=== PATIENT | male | born 1945 | race Caucasian/White ===

== ENCOUNTER 2016-12-16 04:26 | Inpatient (IN) | payer OTHER, BC ==
[~2016-12-16] VITALS: Ht 175.3 cm; Wt 83.8 kg
[~2016-12-16 04:26] MED LIST: ACET-1256 PO; ALBUAER2 INH; AMLO-110 PO; AMLO2.5T PO; ASPEC81 PO; FENO145T26 PO; FERRTAB18 PO; METO25TA3 PO; MULT-506 PO; NTRGSL/4 UT; OXYC-57 PO; ROSU40TA PO; TIOTCAP INH; [UNRECOGNIZED DRUG - CODE] PO
[2016-12-16 04:32] VITALS: Ht 175.3 cm; Wt 83.8 kg
[2016-12-16] MEDS ORDERED: ASPIRIN 81 MG CHEW PO STA (04:48)
[2016-12-16 05:00] LABS: HEMATOCRIT 40.9 % (42-52); MEAN CELL VOLUME 86.3 fL (80-100); MEAN CORPUSCULAR HEMOGLOBIN 29.7 pg (25-34); MEAN CORPUSCULAR HGB CONC 34.5 g/dl (32-36); MEAN PLATELET VOLUME 9.7 fL (7.4-10.4); PLATELET COUNT 320 K/uL (130-400); RED BLOOD COUNT 4.74 M/uL (4.7-6.1); WHITE BLOOD COUNT 13.49 K/uL (4.8-10.8)
[2016-12-16 05:09] LABS: PROTHROMBIN TIME (PATIENT) 10.6 SECONDS (9.0-12.0)
[2016-12-16 05:12] LABS: BUN/CREATININE RATIO 19.7 (10-20); CALCIUM 8.8 mg/dl (8.5-10.1); CREATININE 1.9 mg/dl (0.60-1.40); POTASSIUM 4.4 mmol/L (3.5-5.1)
[2016-12-16 05:26] LABS: BASO % 0.2 %; BASO ABS # 0.03 K/uL (0-0.2); COMPLETE YES; EOS % 0.4 %; IG% 0.7 %; LYMPH % 12.9 %; LYMPH ABS # 1.74 K/uL (1.2-3.4); MONO % 4.2 %; NEUT % 81.6 %
[2016-12-16 05:29] LABS: THYROID STIMULATING HORMONE 1.39 uIu/ml (0.300-4.500)
[2016-12-16] MEDS ORDERED: MoRPHine SULFATE 4 MG/ML 1 ML CARP\\VIAL IV STA (05:34)
[2016-12-16] MEDS: NITROGLYCERIN 0.4 MG SL PER TAB CHARGE SL PRN ×2 (05:41→05:46)
[2016-12-16] MEDS ORDERED: NITROGLYCERIN OINT 2% 1GM PACKET EXT ONE (05:45)
[2016-12-16] MEDS ORDERED: HEPARIN 25000 UNIT/500 ML D5W ONE (05:50)
[2016-12-16] MEDS ORDERED: HEPARIN SOD 5000 UNIT/0.5 ML CARP ONE (05:50)
[2016-12-16] MEDS ORDERED: SODIUM CHLORIDE 0.9% 500ML 500 ML IV STA ×2 (06:01→06:02)
[2016-12-16] MEDS ORDERED: SPRIN/30 INH (06:07)
[2016-12-16] MEDS ORDERED: VNTHFA/IN INH (06:08)
[2016-12-16] MEDS ORDERED: ASPI81TA28 PO (06:08)
[2016-12-16] MEDS ORDERED: WHEAPOW13 PO (06:09)
[2016-12-16] MEDS ORDERED: NITROGLYCERIN 0.4 MG SL PER TAB CHARGE SL STA (06:29)
[2016-12-16] MEDS ORDERED: PANTOprazole SOD 40 MG TAB PO ONE (06:29)
[2016-12-16 06:42] LABS: MAGNESIUM 2.1 mg/dl (1.8-2.4)
[2016-12-16] MEDS ORDERED: HYDROmorphone INJ 0.5 MG/0.5 ML SYR IV PRN (06:45)
[2016-12-16] MEDS ORDERED: DEXTROSE 50% 50 ML SYR IV PRN (06:45)
[2016-12-16] MEDS ORDERED: NITROGLYCERIN 0.4 MG SL PER TAB CHARGE SL PRN (06:45)
[2016-12-16] MEDS ORDERED: ONDANSETRON INJ 2 MG/ML 2 ML VIAL IV PRN (06:45)
[2016-12-16] MEDS ORDERED: GLUCAGON FOR INJ 1 MG VIAL SQ PRN (06:45)
[2016-12-16] MEDS ORDERED: GLUCOSE 40% GEL 15 GM TUBE PO PRN (06:45)
[2016-12-16] MEDS ORDERED: ACETAMINOPHEN 325 MG TAB PO PRN (06:45)
[2016-12-16] MEDS ORDERED: LORAZEPAM 2 MG/ML 1 ML VIAL IV PRN (06:45)
[2016-12-16] MEDS ORDERED: PROMETHAZINE HCL INJ 12.5 MG in SODIUM CHLORIDE 0.9% 50ML 50 ML IV PRN (06:45)
[2016-12-16] MEDS ORDERED: OXYCODONE/ACETAMINOPHEN 5-325 TAB PO PRN (06:45)
[2016-12-16] MEDS ORDERED: GLUCOSE 10 TABS/TUBE PO PRN (06:45)
[2016-12-16] MEDS ORDERED: SODIUM CHLORIDE 0.9% 1000ML 1,000 ML IV SCH (06:45)
--- NOTE | 2016-12-16 06:51 | EMERGENCY ROOM VISIT NOTE ---
History Report prepared by Xiomara: Filiberto Patrick Under the Supervision of: Dr. Norris Gabriel D.O. First contact with patient: 04:48 Chief Complaint: ABDOMINAL PAIN Stated Complaint: PAIN IN STOMACH, SHOULDER PAIN History of Present Illness The patient is a 71 year old male who presents to the Emergency Room with complaints of persistent epigastric pain since 0000. The patient describes the pain as a pressure sensation. He also complains of pain in the left shoulder. He vomited once after the onset of pain. The patient denies shortness of breath. The patient had a dose of Nitroglycerin, which did not relieve his pain. He did not have any Aspirin. The patient follows up with Dr. Vazquez, Chisel Trimmer. The patient also notes that his ostomy bag filled and ruptured prior to the onset of his pain. Source of History: patient Onset: 0000 Position: abdomen (epigastric) Quality: pressure Timing: other (persistent) Associated Symptoms: + vomiting, No SOB Review of Systems See HPI for pertinent positives & negatives. A total of 10 systems reviewed and were otherwise negative. Past Medical & Surgical Medical Problems: (1) AAA (abdominal aortic aneurysm) (2) ACS (acute coronary syndrome) (3) Bronchitis (4) CAD (coronary artery disease) (5) CKD (chronic kidney disease) stage 3, GFR 30-59 ml/min (6) COPD, mild (7) Diverticulosis (8) Dyslipidemia (9) HTN (hypertension) (10) Lumbar adjacent segment disease with spondylolisthesis (11) Tobacco abuse Surgical Problems: (1) Abdominal aortic aneurysm (2) H/O exploratory laparotomy (3) H/O laminectomy (4) History of colon resection (5) S/P AAA repair Family History Heart disease Social History Smoking Status: Current Every Day Smoker Drug Use: none Marital Status: Housing Status: lives with significant other Occupation Status: retired Current/Historical Medications Scheduled Acetaminophen (Tylenol), 1 TAB PO Q8 Amlodipine (Norvasc), 5 MG PO HS Amlodipine (Norvasc), 2.5 MG PO HS Aspirin (Aspirin Ec), 81 MG PO DAILY Fenofibrate (Tricor ), 145 MG PO QAM Iron-Vitamin C (Vitron-C), 1 TAB PO BID Metoprolol Succ (Toprol Xl) (Toprol-Xl), MG PO BID Rosuvastatin Calcium (Crestor), 40 MG PO QAM Tiotropium [place] (Spiriva Handihaler), 1 CAP INH DAILY Wheat Dextrin (Benefiber), 1 TBS PO DAILY Scheduled PRN Albuterol (Ventolin), 2 PUFFS INH QID PRN for SOB/Wheezing Albuterol Hfa (Ventolin Hfa), 2 PUFFS INH Q6H PRN for SOB/Wheezing Nitroglycerin (Nitrostat), 0.4 MG UT UD PRN for Chest Pain Oxycodone/Acetaminophen 5MG/325MG (Percocet 5MG/325MG), 1 TABLET PO Q8H PRN for RN Allergies Coded Allergies: No Known Drug Allergy (Verified Allergy, Unknown, ., 12/16/16) Physical Exam Vital Signs Date Time Temp Pulse Resp B/P Pulse Ox O2 Delivery O2 Flow Rate FiO2 12/16/16 05:47 67 18 90/51 92 Room Air 12/16/16 05:42 73 18 127/72 94 Room Air 12/16/16 05:10 74 12/16/16 04:57 92 20 132/78 97 Room Air 12/16/16 04:51 97 Room Air 12/16/16 04:32 36.3 82 20 124/70 96 Room Air Physical Exam CONSTITUTIONAL/VITAL SIGNS: Reviewed / noted above. GENERAL: Non-toxic in appearance. INTEGUMENTARY: Warm, dry, and [place]. HEAD: Normocephalic. EYES: without scleral icterus or trauma. ENT/OROPHARYNX: clear and moist. LYMPHADENOPATHY/NECK: Is supple without lymphadenopathy or meningismus. RESPIRATORY: Lungs clear and equal. CARDIOVASCULAR: Regular rate and rhythm. GI/ABDOMEN: Soft and nontender. No organomegaly or pulsatile mass. No rebound or guarding. Normal bowel sounds. EXTREMITIES: Warm and well perfused. BACK: No CVA tenderness. NEUROLOGICAL: Intact without focal deficits. PSYCHIATRIC: normal affect. MUSCULOSKELETAL: Normally developed with good muscle tone. Medical Decision & Procedures ER Provider Diagnostic Interpretation: X ray results and stated below per my interpretation. CHEST ONE VIEW PORTABLE: No acute disease, no pneumothorax, no pneumonia. Laboratory Results 12/16/16 04:44 Red Blood Count 4.74, Mean Corpuscular Volume 86.3, Mean Corpuscular Hemoglobin 29.7, Mean Corpuscular Hemoglobin Concent 34.5, Mean Platelet Volume 9.7, Neutrophils (%) (Auto) 81.6, Lymphocytes (%) (Auto) 12.9, Monocytes (%) (Auto) 4.2, Eosinophils (%) (Auto) 0.4, Basophils (%) (Auto) 0.2, Neutrophils # (Auto) 11.01, Lymphocytes # (Auto) 1.74, Monocytes # (Auto) 0.56, Eosinophils # (Auto) 0.06, Basophils # (Auto) 0.03 12/16/16 04:44 Test 12/16/16 04:44 12/16/16 04:47 White Blood Count 13.49 K/uL (4.8-10.8) Red Blood Count 4.74 M/uL (4.7-6.1) Hemoglobin 14.1 g/dL (14.0-18.0) Hematocrit 40.9 % (42-52) Mean Corpuscular Volume 86.3 fL (80-100) Mean Corpuscular Hemoglobin 29.7 pg (25-34) Mean Corpuscular Hemoglobin Concent 34.5 g/dl (32-36) Platelet Count 320 K/uL (130-400) Mean Platelet Volume 9.7 fL (7.4-10.4) Neutrophils (%) (Auto) 81.6 % Lymphocytes (%) (Auto) 12.9 % Monocytes (%) (Auto) 4.2 % Eosinophils (%) (Auto) 0.4 % Basophils (%) (Auto) 0.2 % Neutrophils # (Auto) 11.01 K/uL (1.4-6.5) Lymphocytes # (Auto) 1.74 K/uL (1.2-3.4) Monocytes # (Auto) 0.56 K/uL (0.11-0.59) Eosinophils # (Auto) 0.06 K/uL (0-0.5) Basophils # (Auto) 0.03 K/uL (0-0.2) RDW Standard Deviation 44.0 fL (36.4-46.3) RDW Coefficient of Variation 13.9 % (11.5-14.5) Immature Granulocyte % (Auto) 0.7 % Immature Granulocyte # (Auto) 0.09 K/uL (0.00-0.02) Prothrombin Time 10.6 SECONDS (9.0-12.0) Prothromb Time International Ratio 1.0 (0.9-1.1) Activated Partial Thromboplast Time 25.5 SECONDS (21.0-31.0) Partial Thromboplastin Ratio 1.0 Anion Gap 9.0 mmol/L (3-11) Est Creatinine Clear Calc Drug Dose 35.7 ml/min Estimated GFR () 40.2 Estimated GFR (Non- 34.7 BUN/Creatinine Ratio 19.7 (10-20) Calcium Level 8.8 mg/dl (8.5-10.1) Magnesium Level 2.1 mg/dl (1.8-2.4) Total Bilirubin 0.3 mg/dl (0.2-1) Direct Bilirubin 0.1 mg/dl (0-0.2) Aspartate Amino Transf (AST/SGOT) 12 U/L (15-37) Alanine Aminotransferase (ALT/SGPT) 23 U/L (12-78) Alkaline Phosphatase 54 U/L (45-117) Total Creatine Kinase 150 U/L (39-308) Creatine Kinase MB 4.5 ng/ml (0.5-3.6) Creatine Kinase MB Ratio 3.0 (0-3.0) Troponin I 0.434 ng/ml (0-0.045) Total Protein 8.3 gm/dl (6.4-8.2) Albumin 4.1 gm/dl (3.4-5.0) Lipase 189 U/L (73-393) Thyroid Stimulating Hormone (TSH) 1.390 uIu/ml (0.300-4.500) Bedside Troponin I 0.280 ng/ml (0-0.045) Laboratory results as stated above per my review. Medications Administered Medications (Trade) Dose Ordered Sig/Lonnie Route Start Time Stop Time Status Last Admin Dose Admin Aspirin (Aspirin Chew) 324 mg NOW STAT PO 12/16/16 04:48 12/16/16 04:50 DC 12/16/16 04:56 324 MG Nitroglycerin (Nitrostat Tab) 0.4 mg Q5M PRN SL 12/16/16 05:15 12/16/16 06:35 DC 12/16/16 05:46 0.4 MG Heparin Sodium/ Dextrose 1 ea NOW STAT N/A 12/16/16 05:36 12/16/16 05:37 DC 12/16/16 05:36 1 EA Heparin Sodium/ Dextrose (Heparin 25,000 Unit/500ml D5W) 25,000 unit STK-MED ONCE .ROUTE 12/16/16 05:50 12/16/16 05:52 DC 12/16/16 06:04 25,000 UNIT Heparin Sodium (Porcine) (Heparin Sq 5000 Unit/0.5ml) 10,000 unit STK-MED ONCE .ROUTE 12/16/16 05:50 12/16/16 05:52 DC 12/16/16 06:01 6,000 UNIT ECG Indication: abdominal pain Rate (beats per minute): 82 Rhythm: normal sinus Findings: ST depression (inferiolaterally), no ectopy Comparison ECG Date: 09/27/15 Change: ST depressions are new compared to EKG dated 09/27/15. ED Course 0445: Previous medical records were reviewed. The patient was evaluated in room B6. A complete history and physical examination was performed. 0448: Aspirin 324 mg PO. 0515: Nitrostat 0.4 mg SL. 0534: Morphine Sulfate 4 mg IV. 0536: Heparin Sodium / Dextrose 1 ea. 0540: Discussed the case with Dr. Dias, Chisel Trimmer. 0544: Spoke with Dr. Clark, [facility] Hospitalist. The patient will be evaluated. 0545: Nitroglycerin 2% 1 inch EXT. Medical Decision The differential that was considered includes acute myocardial infarction, acute coronary syndrome, myocarditis, pericarditis, pericardial effusions / tamponade, esophageal perforation, thoracic aortic dissection, pulmonary embolism, pneumonia, pneumothorax, pancreatitis, shingles, acute cholecystitis, perforated abdominal viscus. This is a 71-year-old male who presents to the ED with a chief complaint of chest pain. Patient describes onset of pain just after midnight which she describes as pressure. The patient denies any shortness of breath. He states that he also has some discomfort in his left shoulder. He has stable vital signs. His physical exam was unremarkable. A chest x-ray did not show acute disease. EKG shows ischemic changes with ST depressions/inversions in the inferolateral leads. BUN and creatinine are elevated. Troponin is elevated. TSH was normal. The patient had some improvement of his EKG during his ED stay. He was treated with aspirin. He was also given a couple nitroglycerin tablets that causes some hypotension. This was treated with IV fluids. The patient was started on IV heparin. He will be evaluated by the hospitalist. I did speak with Dr. Dias as well that the patient. Consults Time Called: 05 Consulting Physician: Dr. Dias, Chisel Trimmer. Returned Call: 05 0540: Discussed the case with Dr. Dias, Chisel Trimmer. Additional Consults: Time Called: 0540 Consulted Physician: Nadira Knox Hospitalist Returned Call: 05 Additional Comments: 0544: Spoke with Nadira Knox [facility]. The patient will be evaluated. Impression Primary Impression: NSTEMI (non-ST elevated myocardial infarction) Scribe Attestation The scribe's documentation has been prepared under my direction and personally reviewed by me in its entirety. I confirm that the note above accurately reflects all work, treatment, procedures, and medical decision making performed by me. Departure Information Dispostion Being Evaluated By Hospitalist Referrals Amanda Richter M.D. (PCP) Patient Instructions My [facility]
[2016-12-16] MEDS ORDERED: HEPARIN IV LOW DOSE NO BOLUS SCH (07:15)
[2016-12-16 07:24] LABS: ESTIMATED AVERAGE GLUCOSE 123 mg/dl; HA1C FLAG Normal (Normal)
[2016-12-16] MEDS ORDERED: MoRPHine SULFATE 10 MG/ML CARP/VIAL ONE (07:54)
[2016-12-16] MEDS ORDERED: MoRPHine SULFATE 10 MG/ML CARP/VIAL IV STA (07:55)
[2016-12-16] MEDS ORDERED: ONDANSETRON INJ 2 MG/ML 2 ML VIAL IV STA (07:55)
--- NOTE | 2016-12-16 08:05 | DIAGNOSTIC IMAGING REPORT ---
SINGLE VIEW CHEST CLINICAL HISTORY: Fever. Sepsis. FINDINGS: An AP, portable, upright chest radiograph is compared to study dated 04/07/2016 and correlated with chest CT dated 07/02/2009. The examination is degraded by portable technique and patient rotation. The heart is mildly enlarged and there is atherosclerotic calcification of the thoracic aorta. The pulmonary vasculature is noncongested. Enlargement of the central pulmonary arteries suggests pulmonary artery hypertension. Emphysema and chronic interstitial thickening are similar to previous. There is mild bibasilar atelectasis. No airspace consolidation or large pleural effusion is identified. No pneumothorax is seen. The skeletal structures are osteopenic. The bony thorax is grossly intact. Advanced atherosclerotic calcification is noted in the carotid bulbs. IMPRESSION: Cardiomegaly and emphysema with no acute cardiopulmonary abnormality. Electronically signed by: Kenyon Esposito M.D. 12/16/2016 8:04 AM Dictated Date/Time: 12/16/2016 8:02 AM
[2016-12-16] MEDS ORDERED: HEPARIN SOD (PORCINE) 1000 UNIT/ML 10 ML VIAL ONE (08:09)
[2016-12-16] MEDS ORDERED: FENTANYL CITRATE INJ 50 MCG/1 ML 2 ML VIAL ONE (08:09)
[2016-12-16] MEDS ORDERED: NiCARDipine HCL INJ 2.5 MG/ML 10 ML AMP ONE (08:09)
[2016-12-16] MEDS ORDERED: NITROGLYCERIN/D5W 100MCG/ML 20ML SYR ONE (08:10)
[2016-12-16] MEDS ORDERED: MIDAZOLAM HCL 1 MG/ML 2ML VIAL ONE (08:10)
[2016-12-16 08:16] VITALS: TEMP 36.3; O2SAT 95
--- NOTE | 2016-12-16 08:29 | DIAGNOSTIC IMAGING REPORT ---
CT SCAN OF THE ABDOMEN AND PELVIS WITH IV CONTRAST CLINICAL HISTORY: Atypical chest pain. COMPARISON STUDY: Abdominal CT dated 09/27/2015. TECHNIQUE: Following the IV administration of 119 cc of Optiray 320, CT scan of the abdomen and pelvis is performed from the lung bases to the proximal femora. Images are reviewed in the axial, sagittal, and coronal planes. IV contrast was administered without complication. Automated dose control exposure was utilized. CT DOSE: 1053.42 mGy.cm FINDINGS: Lung bases: The heart is normal in size and without pericardial effusion. There are coronary artery calcifications. Advanced emphysema is noted at the lung bases. There is dependent atelectasis. No airspace consolidation is seen typical for pneumonia and there is no pleural effusion. Liver: The contrast-enhanced liver is normal in size, contour, and attenuation. There is no intrahepatic biliary ductal dilatation. The hepatic veins and portal veins are patent. Gallbladder: There is a large calcified gallstone. There is no CT evidence of acute cholecystitis. Spleen: Normal in size and attenuation. Pancreas: Atrophic. Adrenal glands: Unremarkable. Kidneys: The contrast enhanced kidneys are atrophic and without hydronephrosis. The kidneys enhance symmetrically. There are at least 2 nonobstructing left renal calculi measuring up to 6 mm. Abdominal vasculature: There is advanced atherosclerotic plaque identified involving the abdominal aorta. There are changes from aortobiiliac bypass. The grafts appear patent. There is complete occlusion of the distal [place] abdominal aorta and common iliac arteries. 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 There is trace flow seen within the [place] external iliac arteries, likely retrograde. Stomach and bowel: A tiny hiatal hernia is identified. The stomach is mildly distended and fluid-filled. The duodenum is normal in configuration. No bowel obstruction is seen. There are postoperative changes from subtotal colectomy with right lower quadrant ileostomy. A small parastomal hernia is identified. A rectal stump is noted in the pelvis. There is laxity of the ventral abdominal wall with protuberant bowel loops. Peritoneum: There is no intraperitoneal free air or abdominal ascites. Foci of fat necrosis are present in the left lower quadrant. Lymphadenopathy: None. Pelvic viscera: The prostate gland is mildly enlarged and heterogeneous. The bladder wall appears thickened and trabeculated suggesting the sequelae of chronic outlet obstruction. There is a small fat-containing right inguinal hernia. Skeletal structures: The skeletal structures are osteopenic. Result sacral spondylosis with postoperative change L4-L5 spinal fusion. No lytic or blastic lesions are seen. Advanced arthritic change is noted in the hips. IMPRESSION: 1. There are no acute infectious or inflammatory findings in the abdomen or pelvis. 2. There are postoperative changes from subtotal colectomy with right lower quadrant ileostomy. No bowel obstruction is seen. A small parastomal hernia is identified. 3. Advanced emphysema. 4. There is advanced atherosclerotic disease seen throughout the abdominal aorta with aortobiiliac bypass grafts. The grafts are patent. 5. Nonobstructing left renal calculi. 6. Cholelithiasis. 7. The stomach is mildly distended. This is of indeterminant significance. 8. Additional changes as above. Electronically signed by: Kenyon Esposito M.D. 12/16/2016 8:27 AM Dictated Date/Time: 12/16/2016 8:18 AM
--- NOTE | 2016-12-16 08:29 | EMERGENCY ROOM VISIT NOTE ---
ED Visit Note First contact with patient: 08:26 Received patient in signout from Dr. Gabriel. history and physical verified by me. Culture patient's room because of severe chest pain. The patient appears to be having dynamic EKG changes however no outright criteria for STEMI. He was given 10 of morphine in the emergency department for his pain along with 4 Zofran. He immediate was sent over for a CAT scan of the chest. I did discuss the case with the [facility] hospitalist as well as [facility] cardiology. The decision was made to take the patient to the [facility]. Patient was in agreement with the treatment plan. Problem List Medical Problems: (1) AAA (abdominal aortic aneurysm) Permanent Comment: s/p repair Status: Chronic (2) CAD (coronary artery disease) Permanent Comment: NSTEMI 09/2015 Status: Chronic (3) CKD (chronic kidney disease) stage 3, GFR 30-59 ml/min Status: Chronic (4) COPD, mild Status: Chronic (5) Diverticulosis Status: Chronic (6) Dyslipidemia Status: Chronic (7) HTN (hypertension) Status: Chronic (8) Tobacco abuse Status: Chronic Surgical Problems: (1) H/O exploratory laparotomy Permanent Comment: 09/2015 Dr. Max Rogers Status: Resolved (2) H/O laminectomy Status: Resolved (3) History of colon resection Permanent Comment: secondary to ischemic bowel 09/2015 Status: Resolved (4) S/P AAA repair Permanent Comment: Dr. Willams 06/2009 Status: Resolved Current/Historical Medications Scheduled Acetaminophen (Tylenol), 1 TAB PO Q8 Amlodipine (Norvasc), 5 MG PO HS Amlodipine (Norvasc), 2.5 MG PO HS Aspirin (Aspirin Ec), 81 MG PO DAILY Fenofibrate (Tricor ), 145 MG PO QAM Iron-Vitamin C (Vitron-C), 1 TAB PO BID Metoprolol Succ (Toprol Xl) (Toprol-Xl), MG PO BID Rosuvastatin Calcium (Crestor), 40 MG PO QAM Tiotropium [place] (Spiriva Handihaler), 1 CAP INH DAILY Wheat Dextrin (Benefiber), 1 TBS PO DAILY Scheduled PRN Albuterol (Ventolin), 2 PUFFS INH QID PRN for SOB/Wheezing Albuterol Hfa (Ventolin Hfa), 2 PUFFS INH Q6H PRN for SOB/Wheezing Nitroglycerin (Nitrostat), 0.4 MG UT UD PRN for Chest Pain Oxycodone/Acetaminophen 5MG/325MG (Percocet 5MG/325MG), 1 TABLET PO Q8H PRN for RN Allergies Coded Allergies: No Known Drug Allergy (Verified Allergy, Unknown, ., 12/16/16) Vital Signs Date Time Temp Pulse Resp B/P Pulse Ox O2 Delivery O2 Flow Rate FiO2 12/16/16 05:58 112/58 12/16/16 05:57 97/61 12/16/16 05:56 68 19 95 12/16/16 05:48 85/46 12/16/16 05:47 67 18 90/51 92 Room Air 12/16/16 05:42 73 18 127/72 94 Room Air 12/16/16 05:10 74 12/16/16 04:57 92 20 132/78 97 Room Air 12/16/16 04:51 97 Room Air 12/16/16 04:32 36.3 82 20 124/70 96 Room Air Laboratory Results 12/16/16 04:44 Red Blood Count 4.74, Mean Corpuscular Volume 86.3, Mean Corpuscular Hemoglobin 29.7, Mean Corpuscular Hemoglobin Concent 34.5, Mean Platelet Volume 9.7, Neutrophils (%) (Auto) 81.6, Lymphocytes (%) (Auto) 12.9, Monocytes (%) (Auto) 4.2, Eosinophils (%) (Auto) 0.4, Basophils (%) (Auto) 0.2, Neutrophils # (Auto) 11.01, Lymphocytes # (Auto) 1.74, Monocytes # (Auto) 0.56, Eosinophils # (Auto) 0.06, Basophils # (Auto) 0.03 12/16/16 04:44 Test 12/16/16 04:44 12/16/16 04:47 White Blood Count 13.49 K/uL (4.8-10.8) Red Blood Count 4.74 M/uL (4.7-6.1) Hemoglobin 14.1 g/dL (14.0-18.0) Hematocrit 40.9 % (42-52) Mean Corpuscular Volume 86.3 fL (80-100) Mean Corpuscular Hemoglobin 29.7 pg (25-34) Mean Corpuscular Hemoglobin Concent 34.5 g/dl (32-36) Platelet Count 320 K/uL (130-400) Mean Platelet Volume 9.7 fL (7.4-10.4) Neutrophils (%) (Auto) 81.6 % Lymphocytes (%) (Auto) 12.9 % Monocytes (%) (Auto) 4.2 % Eosinophils (%) (Auto) 0.4 % Basophils (%) (Auto) 0.2 % Neutrophils # (Auto) 11.01 K/uL (1.4-6.5) Lymphocytes # (Auto) 1.74 K/uL (1.2-3.4) Monocytes # (Auto) 0.56 K/uL (0.11-0.59) Eosinophils # (Auto) 0.06 K/uL (0-0.5) Basophils # (Auto) 0.03 K/uL (0-0.2) RDW Standard Deviation 44.0 fL (36.4-46.3) RDW Coefficient of Variation 13.9 % (11.5-14.5) Immature Granulocyte % (Auto) 0.7 % Immature Granulocyte # (Auto) 0.09 K/uL (0.00-0.02) Prothrombin Time 10.6 SECONDS (9.0-12.0) Prothromb Time International Ratio 1.0 (0.9-1.1) Activated Partial Thromboplast Time 25.5 SECONDS (21.0-31.0) Partial Thromboplastin Ratio 1.0 Anion Gap 9.0 mmol/L (3-11) Est Creatinine Clear Calc Drug Dose 35.7 ml/min Estimated GFR () 40.2 Estimated GFR (Non- 34.7 BUN/Creatinine Ratio 19.7 (10-20) Estimated Average Glucose 123 mg/dl Hemoglobin A1c 5.9 % (4.5-5.6) Calcium Level 8.8 mg/dl (8.5-10.1) Magnesium Level 2.1 mg/dl (1.8-2.4) Total Bilirubin 0.3 mg/dl (0.2-1) Direct Bilirubin 0.1 mg/dl (0-0.2) Aspartate Amino Transf (AST/SGOT) 12 U/L (15-37) Alanine Aminotransferase (ALT/SGPT) 23 U/L (12-78) Alkaline Phosphatase 54 U/L (45-117) Total Creatine Kinase 150 U/L (39-308) Creatine Kinase MB 4.5 ng/ml (0.5-3.6) Creatine Kinase MB Ratio 3.0 (0-3.0) Troponin I 0.434 ng/ml (0-0.045) Total Protein 8.3 gm/dl (6.4-8.2) Albumin 4.1 gm/dl (3.4-5.0) Lipase 189 U/L (73-393) Thyroid Stimulating Hormone (TSH) 1.390 uIu/ml (0.300-4.500) Bedside Troponin I 0.280 ng/ml (0-0.045) Medications Administered Medications (Trade) Dose Ordered Sig/Lonnie Route Start Time Stop Time Status Last Admin Dose Admin Aspirin (Aspirin Chew) 324 mg NOW STAT PO 12/16/16 04:48 12/16/16 04:50 DC 12/16/16 04:56 324 MG Nitroglycerin (Nitrostat Tab) 0.4 mg Q5M PRN SL 12/16/16 05:15 12/16/16 06:35 DC 12/16/16 05:46 0.4 MG Heparin Sodium/ Dextrose 1 ea NOW STAT N/A 12/16/16 05:36 12/16/16 05:37 DC 12/16/16 05:36 1 EA Heparin Sodium/ Dextrose (Heparin 25,000 Unit/500ml D5W) 25,000 unit STK-MED ONCE .ROUTE 12/16/16 05:50 12/16/16 05:52 DC 12/16/16 06:04 25,000 UNIT Heparin Sodium (Porcine) (Heparin Sq 5000 Unit/0.5ml) 10,000 unit STK-MED ONCE .ROUTE 12/16/16 05:50 12/16/16 05:52 DC 12/16/16 06:01 6,000 UNIT Departure Information Impression Primary Impression: NSTEMI (non-ST elevated myocardial infarction) Dispostion Being Evaluated By Hospitalist Referrals Amanda Richter M.D. (PCP) Patient Instructions My [facility]
--- NOTE | 2016-12-16 08:33 | DIAGNOSTIC IMAGING REPORT ---
CHEST CTA for AORTIC DISSECTION CT DOSE: HISTORY: Crushing chest pain. TECHNIQUE: Multiaxial CT images of the chest were performed both before and after the intravenous administration of contrast to evaluate the aorta. Maximal intensity projection images were also obtained. COMPARISON STUDY: Chest 12/16/2016. FINDINGS: Approximately 30-40% narrowing at the proximal left subclavian artery due to the atherosclerotic plaque. Noncontrast imaging shows no evidence for an intramural hematoma within the thoracic aorta. Moderate atherosclerotic plaque within the aortic arch and descending thoracic aorta. There is moderate to severe stenosis at the origin of the celiac artery and bilateral renal arteries. Cholelithiasis. Normal caliber thoracic aorta with no evidence for dissection. The heart is normal in size. No pleural or pericardial effusions. The central pulmonary arteries are patent. No mediastinal or hilar lymphadenopathy. No pneumothorax. Mild emphysema. Groundglass densities at the lung bases favor mild dependent change/atelectasis. Small linear density right lung apex favor scarring. There is an 8 mm groundglass nodule within the left lung apex on image 49. IMPRESSION: 1. No evidence for an aortic dissection. 2. Moderate atherosclerotic plaque within the aortic arch and descending thoracic aorta. 3. Approximately 30-40% stenosis within the proximal left subclavian artery. 4. Moderate to severe stenosis at the origin of the celiac artery and bilateral renal arteries. 5. Cholelithiasis. 6. An 8 mm groundglass nodule within the left lung apex. Please refer to the chart below for recommended follow-up. 7. Emphysema. Please refer to below summary of Fleischner criteria recommendations for follow-up of incidental CT nodules (Amadou Almeida, Guidelines for management of small pulmonary nodules detected on CT scans: A statement from the Fleischner Society, Radiology 237: [phone].) Low Risk Patient: Minimal or no smoking or other known risk factors for malignancy <=4 mm: No follow-up needed. >4-6 mm: Initial follow-up CT at 12 months; if unchanged, no further follow-up. >6-8 mm: Initial follow-up CT at 6-12 months then at 18-24 months if no change. >8 mm: Follow-up CT at \R\3, 9, 24 months, or PET and/or biopsy. High Risk Patient: History of smoking or other known risk factors <=4 mm: Follow-up at 12 months; if unchanged, no further follow-up. >4-6 mm: Initial follow-up CT at 6-12 months then at 18-24 months if no change. >6-8 mm: Initial follow-up CT at 3-6 months then at 9-12 and 24 months if no change. >8 mm: Same as low risk patient. Note: Nodule size measured as average of length and width. Ground glass or partly solid nodules may require longer follow-up to exclude indolent adenocarcinoma. Electronically signed by: Angelito Alvarez M.D. 12/16/2016 8:32 AM Dictated Date/Time: 12/16/2016 8:22 AM
[2016-12-16] MEDS ORDERED: EPTIFIBATIDE 2 MG/ML 10 ML VIAL IV ONE (08:57)
[2016-12-16] MEDS ORDERED: EPTIFIBATIDE 0.75 MG/ML 75MG VIAL IV ONE (08:57)
[2016-12-16] MEDS ORDERED: NITROGLYCERIN/D5W 100 MCG/ML BTL ONE (08:57)
[2016-12-16] MEDS ORDERED: TIOTROPIUM BROMIDE 5 PUFF/90 MCG INH INH SCH (09:00)
[2016-12-16] MEDS ORDERED: ROSUVASTATIN CALCIUM 20 MG TAB PO SCH (09:00)
[2016-12-16] MEDS ORDERED: METOPROLOL SUCC 25MG EXT REL TAB PO SCH (09:00)
[2016-12-16] MEDS ORDERED: ASPIRIN 81 MG ECTAB PO SCH (09:00)
[2016-12-16] MEDS ORDERED: AMLODIPINE BESYLATE 5 MG TAB PO SCH (09:00)
--- NOTE | 2016-12-16 09:08 | HISTORY & PHYSICAL EXAMINATION ---
DATE OF ADMISSION: 12/16/2016 PRIMARY CARE PHYSICIAN: Dr. Richter CHIEF COMPLAINT: Chest pain. HISTORY OF PRESENT ILLNESS: Medical history is significant for CAD, AAA sp surgery. history of ischemic colitis sp surgery, COPD, ongoing tobacco abuse, DM2, diet controlled, CRI (baseline creatinine 1.6) Recent confinement April 2016, under Orthopedic service for elective back surgery. Postop course unremarkable. This morning the patient woke up with ostomy bag full. He got up to empty it, he subsequently had lower chest discomfort described as a burning w/some shortness of breath. No fever, no chills, no cough. Separate left shoulder discomfort w/c he has been dealing for some time now (attributed to a shoulder cyst) No cp response to nitroglycerin. Px subsequently had emesis. Patient had relief with nitroglycerin given in the Emergency Room. MEDICAL HISTORY: As above. History of ischemic bowel sp surgery at [facility] (2014) complicated by respiratory failure requiring intubation and catecholamine mediated cardiomyopathy as per records. Cardiac catheterization in 2012 showed calcification left main with 20% narrowing desiring LAD 50% midvessel 50% diagonal 13% narrowing circumflex, 40% AV groove. SURGERIES: He has had back surgery, bowel resection, AAA repair. HOME MEDICATIONS: Include, Toprol-XL, multivitamins, Nitrostat, Percocet, Tylenol, Ventolin, Norvasc, aspirin, Tricor. ALLERGIES: No known drug allergies. FAMILY HISTORY: Heart disease. PERSONAL AND SOCIAL HISTORY: Few cigarettes a day. Occasional alcoholic beverage intake. Retired. REVIEW OF SYSTEMS: As per HPI, all other ROS negative. PHYSICAL EXAMINATION: VITAL SIGNS: Blood pressure was noted to be 130/70, pulse rate 90, RR 20, temperature 36.3, sats 97 on room air. GENERAL: Noted to be slightly anxious, no respiratory distress. SKIN: Normal color. HEENT: Partial alopecia. [place] palpebral conjunctivae. dry buccal mucosa NECK: No JVD. supple CHEST: Clear to auscultation. HEART: Regular rate and rhythm. ABDOMEN: Minimal epigastric tenderness. Ostomy noted. EXTREMITIES: No edema. no tenderness NEUROLOGIC: No gross focality. LABS: Hemoglobin was 14.1, hematocrit 40, white cell count is 13, platelets 320. Sodium 139, potassium 4.4, chloride 105, CO2 25, BUN 37, creatinine 1.9, troponin 0.434. EKG NSR, ST depressions inferior and anterolat leads; Q waves, septal leads; PRWP Chest x-ray showed cardiomegaly, atelectasis. ASSESSMENT: 1. Chest pain possible ACS history of CAD as per records GERD may be a differential rule out bowel obstruction, history of bowel surgery for ischemic colitis. 2. Hypertension, stable 3. COPD, ongoing tobacco abuse. pulmonary status at baseline. 4. ARF on CRI. 5. DM2, diet controlled, well controlled as of recent A1c of 5.5 last year. 6. AAA sp surgery PLAN: PCU. Continue antiplatelets, beta-gena, statin medication, nitro p.r.n. low dose IV heparin. 2D echocardiogram, Cardiology consult RE chest pain. (ER MD already in touch with Dr. Dias) PPI trial for reflux. CT abdomen and pelvis RE abd pain baseline UA, monitor creatinine response to IVF ISS BG goal 140-180, patient is due for hemoglobin check. smoking cessation counseling DVT prophylaxis, Heparin Full code. MTDD
--- NOTE | 2016-12-16 09:58 | Procedure Note ---
Post-Mod Sedation Assessment General Date of Moderate Sedation Dec 16, 2016. Vital Signs: Vital Signs Past 12 Hours Date Time Temp Pulse Resp B/P Pulse Ox O2 Delivery O2 Flow Rate FiO2 12/16/16 09:45 80 18 117/69 94 Mask 11 12/16/16 09:30 85 18 124/67 94 Non-Rebreather 15 12/16/16 09:15 85 18 126/72 89 Non-Rebreather 15 12/16/16 09:10 88 18 122/76 93 Mask 10 12/16/16 09:05 92 20 130/77 94 Mask 10 12/16/16 08:58 82 18 111/67 92 Mask 10 12/16/16 08:16 36.3 86 21 116/66 95 12/16/16 08:08 116/66 95 Nasal Cannula 4.0 12/16/16 08:06 86 21 95 12/16/16 08:03 117/73 12/16/16 08:01 86 25 96 12/16/16 07:59 106/71 12/16/16 07:58 81 24 120/90 97 Nasal Cannula 4.0 12/16/16 07:36 80 18 98 12/16/16 07:31 76 25 98 12/16/16 07:28 127/70 12/16/16 07:26 74 17 97 12/16/16 07:24 74 22 125/66 98 Nasal Cannula 2.0 12/16/16 07:23 125/66 12/16/16 07:21 75 18 98 12/16/16 07:18 75 12/16/16 07:16 73 17 97 12/16/16 07:13 127/75 12/16/16 07:11 74 19 99 12/16/16 07:06 74 16 98 12/16/16 07:01 72 20 97 12/16/16 06:58 109/74 12/16/16 06:56 74 20 97 12/16/16 06:51 72 18 96 12/16/16 06:47 103/62 12/16/16 06:46 74 19 94 12/16/16 06:43 121/71 12/16/16 06:41 74 14 98 12/16/16 06:37 71 18 109/66 98 Nasal Cannula 2.0 12/16/16 06:36 72 17 99 12/16/16 06:31 73 20 98 2/15/17 06:28 109/66 12/16/16 06:26 77 30 99 12/16/16 06:21 73 19 99 12/16/16 06:16 74 16 98 12/16/16 06:13 125/64 12/16/16 06:11 74 28 98 12/16/16 06:07 80 18 112/58 98 Room Air 12/16/16 06:06 72 17 97 12/16/16 06:01 73 19 97 12/16/16 05:58 112/58 12/16/16 05:57 97/61 12/16/16 05:56 68 19 95 12/16/16 05:48 85/46 12/16/16 05:47 67 18 90/51 92 Room Air 12/16/16 05:42 73 18 127/72 94 Room Air 12/16/16 05:10 74 12/16/16 04:57 92 20 132/78 97 Room Air 12/16/16 04:51 97 Room Air 12/16/16 04:32 36.3 82 20 124/70 96 Room Air Review - Discharge Criteria Vital Signs Stable: Yes Alert/Oriented/Conversant: Yes Returned to Baseline Mental St: Yes Nausea Absent/Minimal: Yes Pain/Discomfort/Absent/Minimal: Yes Normal/Baseline Respirations: Yes Active Bleeding?: No Pt Received D/C Instructions: N/A Prescriptions Given: None Specific Proced. D/C Criteria Distal Pulses Present (Cardiac: Yes Groin site assessed-Card Cath: N/A Voided Prior To Discharge: N/A Discharged Patients Adult Escort/Transportation: N/A
--- NOTE | 2016-12-16 09:58 | Procedure Note ---
Pre-Mod Sedation Assessment General Date of Moderate Sedation: Dec 16, 2016. Vital Signs: Vital Signs Past 12 Hours Date Time Temp Pulse Resp B/P Pulse Ox O2 Delivery O2 Flow Rate FiO2 12/16/16 09:45 80 18 117/69 94 Mask 11 12/16/16 09:30 85 18 124/67 94 Non-Rebreather 15 12/16/16 09:15 85 18 126/72 89 Non-Rebreather 15 12/16/16 09:10 88 18 122/76 93 Mask 10 12/16/16 09:05 92 20 130/77 94 Mask 10 12/16/16 08:58 82 18 111/67 92 Mask 10 12/16/16 08:16 36.3 86 21 116/66 95 12/16/16 08:08 116/66 95 Nasal Cannula 4.0 12/16/16 08:06 86 21 95 12/16/16 08:03 117/73 12/16/16 08:01 86 25 96 12/16/16 07:59 106/71 12/16/16 07:58 81 24 120/90 97 Nasal Cannula 4.0 12/16/16 07:36 80 18 98 12/16/16 07:31 76 25 98 12/16/16 07:28 127/70 12/16/16 07:26 74 17 97 12/16/16 07:24 74 22 125/66 98 Nasal Cannula 2.0 12/16/16 07:23 125/66 12/16/16 07:21 75 18 98 12/16/16 07:18 75 12/16/16 07:16 73 17 97 12/16/16 07:13 127/75 12/16/16 07:11 74 19 99 12/16/16 07:06 74 16 98 12/16/16 07:01 72 20 97 12/16/16 06:58 109/74 12/16/16 06:56 74 20 97 12/16/16 06:51 72 18 96 12/16/16 06:47 103/62 12/16/16 06:46 74 19 94 12/16/16 06:43 121/71 12/16/16 06:41 74 14 98 12/16/16 06:37 71 18 109/66 98 Nasal Cannula 2.0 12/16/16 06:36 72 17 99 12/16/16 06:31 73 20 98 12/16/16 06:28 109/66 12/16/16 06:26 77 30 99 12/16/16 06:21 73 19 99 12/16/16 06:16 74 16 98 12/16/16 06:13 125/64 12/16/16 06:11 74 28 98 12/16/16 06:07 80 18 112/58 98 Room Air 12/16/16 06:06 72 17 97 12/16/16 06:01 73 19 97 12/16/16 05:58 112/58 12/16/16 05:57 97/61 12/16/16 05:56 68 19 95 12/16/16 05:48 85/46 12/16/16 05:47 67 18 90/51 92 Room Air 12/16/16 05:42 73 18 127/72 94 Room Air 12/16/16 05:10 74 12/16/16 04:57 92 20 132/78 97 Room Air 12/16/16 04:51 97 Room Air 12/16/16 04:32 36.3 82 20 124/70 96 Room Air Review Cardiovascular: regular rate, rhythm, no edema, no gallop, no JVD, + systolic murmur Abdomen: non tender, soft Lungs: lungs clear Pre-Sedation Airway Assessment Oral Cavity: Dentures Able to Visualize Vocal Cords: No Short Thick Neck: No Hx of Sleep Apnea: No Smoking Status: Current Every Day Smoker Mallampati Classification: Class III Procedure Planning Contraindications-for Mod Sed: None Yes Notes The planned sedation has been discussed with the patient and consent obtained. I have identified the patient, determined the appropriateness of sedation and have assessed the patient immediately prior to the procedure. All medicine(s) and interventions are by my order.
--- NOTE | 2016-12-16 10:21 | Cardiac Catheterization ---
Procedure Note Procedure Date Dec 16, 2016. Pre-Procedure Diagnosis Non STEMI, Acute Coronary Syndrome AUC Score 9 Post-Procedure Diagnosis Severe CAD, Elevated Intracardiac Pressures Procedure(s) Performed Coronary Angiography, Left Heart Cath Revenue Cycle Consultant Dr. Flower Specimen Processor(s) BRIDGER Peterson Estimated Blood Loss 15 ml Medication(s) Fentanyl, Heparin, Integrilin (Started after coronary angiography), Nicardipine (Intra-arterial via arterial sheath), Nitroglycerin (Intravenous nitroglycerin started after coronary angiography), Versed, Lidocaine 1% Summary of Findings Clinical indications: Non ST elevation myocardial infarction, diffuse ST depressions on electrocardiogram, known history of coronary artery disease, cerebral vascular disease, and peripheral vascular disease. The patient is followed by Dr. Alexei Vazquez as an outpatient. He performed cardiac catheterization on the patient December 20, 2012. This revealed a left dominant circulation. The right coronary artery was a small caliber nondominant vessel giving rise to no branches to the left ventricle. The left coronary artery was calcified. On review of the films by me there appears to be at least a moderate ostial LAD stenosis. There was diffuse [id number] atherosclerotic disease in the left anterior descending left circumflex coronary arteries. The patient presented to the emergency department December 16, 2016 with complaints of constant chest discomfort. His electrocardiogram revealed diffuse ST segment depressions. The patient was evaluated by Dr. Yannick Dias. [place] cardiac [place]. The patient has chronic kidney disease. Catheterization site: 6 [place] Slender glide sheath right radial artery. Catheters: 6 [place] EBU 3.75 and EBU 4.0 guide catheters. Adequate cannulation of the left coronary artery was obtained with the EBU 4.0 guide catheter. Hemostasis: Terumo TR band. Complications: None. Findings: The guide catheter cause damping of the pressure waveform when the left main was cannulated. Fluoroscopy revealed extensive calcifications in the proximal and mid segments of the left coronary artery. Coronary circulation was left dominant. The left main. The be diffusely diseased with 50-70% luminal diameter narrowing. This was when the images were compared with the 2013 images. There appeared to be at least a 70% distal left main stenosis and 50-70% diffuse left main narrowing. The LAD was a medium caliber vessel with a 70% ostial stenosis. The proximal LAD was totally occluded after gave rise to a 1st septal cartographic technician and a very small caliber 1st diagonal. The appearance was that of a chronic total occlusion. The ostial left circumflex had a 30-50% stenosis. 30% proximal left circumflex stenosis. The mid circumflex gave rise to a bifurcating marginal artery which had a subtotal ostial stenosis. Left to left collateral flow was present to the distal marginal. Following the origin of the marginal the mid circumflex had a 50% stenosis. The mid circumflex then gave rise to a long small caliber 2nd marginal artery. The distal circumflex had a 30% stenosis prior to the origin of a medium caliber and long 1st posterior lateral artery. Following the 1st chiropractic neurologist lateral artery the distal circumflex and 90% stenosis. It then gave rise to a very small caliber 2nd posterolateral artery. After the 2nd posterolateral the distal circumflex had a subtotal occlusion. The distal circumflex gave rise to a small caliber posterior descending artery. There was a well-formed collateral from the distal PDA to the distal LAD. By this collateral flow the distal and mid LAD were visualized. The LAD wrapped around the apex of the left ventricle. Right coronary angiography was not performed as the prior catheterization had revealed it to be a small caliber nondominant vessel and as the patient has chronic kidney disease with elevated creatinine. This was an attempt to decrease risk of contrast dye and nephrotoxicity. At the completion of procedure the patient had complaints of minimal chest discomfort. He was hemodynamically stable. No arrhythmias. Plan: The patient was started on intravenous Integrilin intravenous nitroglycerin following completion of angiography. He is being transferred to [facility] in [facility] for consideration of CABG surgery. Hemodynamics Rest Ao: 110/58/82 mm Hg Final Ao: 108/63/82 mm Hg LV: 93/35 mm Hg Recommendations CABG Specimens None Radiation Exposure (mGy) 1344 Contrast (mls) 70 ml Visipaque Fluids (cc crystalloids) 87 Drains none Anesthesia Intravenous Versed and fentanyl. Lidocaine 1% for local anesthesia. Procedural Complication(s) None Disposition Battery Container Tester Aluminum Holding/Recovery ACC Data Cardiac Status Clinical evaluation leading to the procedure CAD Presntation: Unstable angina, Non STEMI Anginal Classification: CCS IV Heart Failure: No Cardiogenic Shock w/in 24Hrs: No Cardiac Arrest w/in 24Hrs: No Imaging studies past 6 months: No Stress studies past 6 months: No Standard Exercise Stress Test: No Stress Echocardiogram: No Stress Testing w/SPECT MPI: No Cardiac CTA: No Coronary Anatomy Dominant: Left Left Main (% Stenosis): Ostial (50-70), Proximal (50-70), Mid (50-70), Distal ( 70) LAD (% Stenosis): Ostial (70), Proximal (100) Circumflex (% Stenosis): Ostial (30-50), Proximal (30), Mid (50), Distal (90,95 -99) OM1 (% Stenosis): Ostial (99) OM2 (% Stenosis): Normal L PL1 (% Stenosis): Normal R PDA (% Stenosis): Normal Left Ventricular Angiography EF (%): NA Diagnostic Physician's Name: Onesimo Flower M.D. Status: Urgent Closure Device Percutaneous Entry Location: Radial Closure Device: Radial Band Recommendations: CABG
[2016-12-16 10:45] VITALS: BP 119/70; PULSE 83; O2SAT 96
--- NOTE | 2016-12-16 11:51 | CARDIOLOGY CONSULTATION ---
DATE OF CONSULTATION: 12/16/2016 REASON FOR CONSULTATION: Chest pain. HISTORY OF PRESENT ILLNESS: This is a 71-year-old male patient, who has a very complex vascular history. He had been in his usual state of health until earlier this morning. He awoke with chest discomfort and presented to the Emergency Department. He had evidence of ST segment depressions in the lateral precordial leads and he was started on intravenous heparin and given nitroglycerin, which improved his discomfort. Approximately, an hour and a half later he began to have severe crushing chest discomfort. Repeat EKG showed significant ST segment depressions in the lateral precordial leads with some ST segment elevation in leads V1 and V2. The patient had a CT of the chest performed by the ER physician that failed to show dissection. It did show severe arteriosclerotic vascular disease of his descending aorta. The patient was taken emergently to the cardiac catheterization lab by Dr. Flower. He has severe calcific coronary artery disease involving the left main trunk and ostium of the LAD and circumflex arteries. He has a left dominant system. His LAD is totally occluded in its proximal segment with collaterals from the left circumflex artery. He has a marginal branch that feels like MONSTER grade 1 flow. He also has additional marginal branches supplying the posterior septum, which are subtotaled. Due to the patient's history of severe vascular disease and because of his high risk coronary anatomy, it was decided that he should be transferred to [facility] for further treatment of his acute coronary syndrome and coronary artery disease. Arrangements have been made for transfer. ALLERGIES: No known medical allergies. PAST MEDICAL HISTORY: The patient has a long history of vascular disease, which is diffuse. He is status post right carotid endarterectomy in 2006 and has a chronically stenosed left carotid artery. He had an abdominal aortic aneurysm repair in 2008. In 2014, he had an ischemic bowel that required a resection and now he has a permanent colostomy. He has known coronary artery disease and he last underwent a cardiac catheterization in 2012, which showed distal left main trunk disease as well as disease into the LAD and circumflex arteries. It was decided that the patient should have medical management. Previous CT scans have shown what is described as diffuse atheromatous disease of a descending thoracic aorta into the abdominal aorta. SOCIAL HISTORY: The patient continues to smoke cigarettes. FAMILY MEDICAL HISTORY: Noncontributory. REVIEW OF SYSTEMS: The 10-point review of systems is negative except for the history of chief complaint. PHYSICAL EXAMINATION: GENERAL: He is alert and oriented and in some discomfort. VITAL SIGNS: Blood pressure is 130/80, pulse is regular at 85 beats per minute. He is afebrile. HEENT: He is normocephalic. Pupils are equal and reactive to light. Extraocular muscles are intact bilaterally. NECK: There is a right carotid endarterectomy scar. Left carotid bruit is noted. Thyroid is nonpalpable. RESPIRATORY: Breath sounds equal bilaterally and clear to auscultation. CARDIOVASCULAR: Heart has a regular rhythm. Normal S1, S2. No S3, S4. No cardiac rubs or murmurs. GASTROINTESTINAL: Abdomen is soft, nontender without organomegaly. EXTREMITIES: Free of edema, digit clubbing or cyanosis. NEUROLOGIC: Grossly intact. SKIN: Warm to touch. LYMPH NODES: Negative to palpation. IMPRESSION: 1. Acute coronary syndrome with an acute occlusion of the LAD and left circumflex artery distally supplying the posterior septum. 2. Diffuse arteriosclerotic vascular disease including carotid, abdominal aorta and a previous history of ischemic bowel. 3. Continued history of cigarette smoking. 4. Hyperlipidemia. RECOMMENDATIONS: The patient will be transferred to [facility] for a higher level of care and management of his coronary artery disease.
[2016-12-16] MEDS ORDERED: INSULIN ASPART 100 UNITS/ML 3 ML PEN SC SCH (12:00)
[2016-12-17] MEDS ORDERED: PANTOprazole SOD 40 MG TAB PO SCH (09:00)
--- NOTE | 2016-12-19 00:45 | Discharge Summary ---
Discharge Summary Admission Date: Dec 16, 2016 at 06:00 Discharge Disposition: Acute care facility (Tranferred to [facility]) Principal Diagnosis: Chest Pain Secondary Diagnoses/Problems: Acute coronary syndrome with an acute occlusion of the LAD and left circumflex artery distally supplying the posterior septum Tobacco abuse HTN Procedures: Coronary Angiography, Left Heart Cath Consultations: Cardiology Admission Information HPI (per Admitting provider): CHIEF COMPLAINT: Chest pain. HISTORY OF PRESENT ILLNESS: Medical history is significant for CAD, AAA sp surgery. history of ischemic colitis sp surgery, COPD, ongoing tobacco abuse, DM2, diet controlled, CRI (baseline creatinine 1.6) Recent confinement April 2016, under Orthopedic service for elective back surgery. Postop course unremarkable. This morning the patient woke up with ostomy bag full. He got up to empty it, he subsequently had lower chest discomfort described as a burning w/some shortness of breath. No fever, no chills, no cough. Separate left shoulder discomfort w/c he has been dealing for some time now (attributed to a shoulder cyst) No cp response to nitroglycerin. Px subsequently had emesis. Patient had relief with nitroglycerin given in the Emergency Room. MEDICAL HISTORY: As above. History of ischemic bowel sp surgery at [facility] (2014) complicated by respiratory failure requiring intubation and catecholamine mediated cardiomyopathy as per records. Cardiac catheterization in 2012 showed calcification left main with 20% narrowing desiring LAD 50% midvessel 50% diagonal 13% narrowing circumflex, 40% AV groove. Physical Exam (per Admitting): PHYSICAL EXAMINATION: VITAL SIGNS: Blood pressure was noted to be 130/70, pulse rate 90, RR 20, temperature 36.3, sats 97 on room air. GENERAL: Noted to be slightly anxious, no respiratory distress. SKIN: Normal color. HEENT: Partial alopecia. [place] palpebral conjunctivae. dry buccal mucosa NECK: No JVD. supple CHEST: Clear to auscultation. HEART: Regular rate and rhythm. ABDOMEN: Minimal epigastric tenderness. Ostomy noted. EXTREMITIES: No edema. no tenderness NEUROLOGIC: No gross focality. Hospital Course Chest pain Troponin elevated on heparin drip EKG showed ST segment depressions in the lateral precordial leads Continue asa, statin and BB had cardia cath done, finding: Dominant: Left Left Main (% Stenosis): Ostial (50-70), Proximal (50-70), Mid (50-70), Distal ( 70) LAD (% Stenosis): Ostial (70), Proximal (100) Circumflex (% Stenosis): Ostial (30-50), Proximal (30), Mid (50), Distal (90,95 -99) OM1 (% Stenosis): Ostial (99) OM2 (% Stenosis): Normal L PL1 (% Stenosis): Normal R PDA (% Stenosis): Normal Pt will be transferred to [facility] for CABG surgery Acute coronary syndrome with an acute occlusion of the LAD and left circumflex artery distally supplying the posterior septum Tobacco abuse Counseling on smoking cessation DVT px on heparin drip Total time spent on discharge = 35 minutes This includes examination of the patient, discharge planning, medication reconciliation, and communication with other providers. Additional Copies To Amanda Richter M.D.
== END 2016-12-16 11:21 | disposition short-term general hospital (02) | DRG 287 ==
LOC: C.EDB 04:28 → C.EDINP 06:00
PROVIDERS: ADMIT Internal Medicine; ATTEND Internal Medicine
PROC: B2111ZZ Fluoroscopy of Multiple Coronary Arteries using Low Osmolar Contrast (ICD-10-PCS; 2016-12-16)
PROC: B2151ZZ Fluoroscopy of Left Heart using Low Osmolar Contrast (ICD-10-PCS; 2016-12-16)
PROC: 4A023N7 Measurement of Cardiac Sampling and Pressure, Left Heart, Percutaneous Approach (ICD-10-PCS; principal; 2016-12-16 08:23)
DX: I25.10 Atherosclerotic heart disease of native coronary artery without angina pectoris (principal); N17.9 Acute kidney failure, unspecified; J44.9 Chronic obstructive pulmonary disease, unspecified; I12.9 Hypertensive chronic kidney disease with stage 1 through stage 4 chronic kidney disease, or unspecified chronic kidney disease; E11.9 Type 2 diabetes mellitus without complications; F17.210 Nicotine dependence, cigarettes, uncomplicated; E78.5 Hyperlipidemia, unspecified; N18.3 Chronic kidney disease, stage 3 (moderate)

== ENCOUNTER → 2017-01-06 | Outpatient (CLI) | payer OTHER, BC ==
[~2017-01-06] MED LIST changes: -ASPEC81 PO; +ASPI81TA28 PO; -MULT-506 PO; +SPRIN/30 INH; -TIOTCAP INH; +VNTHFA/IN INH; +WHEAPOW13 PO; -[UNRECOGNIZED DRUG - CODE] PO
[2017-01-06 08:14] LABS: INR 1.8 (0.9-1.1); PROTHROMBIN TIME (PATIENT) 20.1 SECONDS (9.0-12.0)
== END ==
LOC: C.LABCC 07:53
PROVIDERS: ATTEND Internal Medicine
DX: I82.90 Acute embolism and thrombosis of unspecified vein (principal)